=== PATIENT | male | born 1970 | race African-American/Black ===

== ENCOUNTER 2019-01-26 05:22 | Inpatient (IN) | payer OTHER ==
[~2019-01-26] VITALS: Ht 172.7 cm; Wt 72.5 kg
[2019-01-26] MEDS ORDERED: HYDR10TA31 PO (05:30)
[2019-01-26] MEDS ORDERED: CARV12.530 PO (05:30)
[2019-01-26 06:03] LABS: BASOPHILS % (AUTO) 0.3 % (0.0-2.0); EOSINOPHILS % (AUTO) 0.3 % (1.0-6.0); HEMATOCRIT 42.7 % (41-53); LYMPHOCYTES # (AUTO) 0.5 K/uL (1.0-4.8); LYMPHOCYTES % (AUTO) 4.3 % (22.0-44.0); MEAN CORPUSCULAR HEMOGLOBIN 30.7 pg (26.0-34.0); MEAN CORPUSCULAR HGB CONC 32.7 G/dL (31.0-37.0); MEAN CORPUSCULAR VOLUME 94 fL (80-100); MONOCYTES # (AUTO) 0.2 K/uL (0.1-1.0); MONOCYTES % (AUTO) 2.1 % (2.0-9.0); NEUTROPHILS # (AUTO) 10.9 K/uL (1.8-7.7); PLATELET COUNT (AUTO) 195 K/uL (150-450); RED BLOOD CELL COUNT(AUTO) 4.55 MIL/uL (4.50-5.90); RED CELL DISTRIBUTION WIDTH 14.8 % (11.5-14.5)
[2019-01-26 06:11] LABS: ANION GAP 15 mmol/L (8-16); CALCIUM, TOTAL 9.2 mg/dL (8.8-10.5); CARBON DIOXIDE 24 mmol/L (22-29); CHLORIDE 102 mmol/L (98-107); GLOMERULAR FILTR. RATE CALC > 60 mL/min (>60); GLUCOSE,RANDOM 156 mg/dL (70-110); POTASSIUM 3.8 mmol/L (3.5-5.1); SODIUM SERUM 141 mmol/L (136-145); UREA NITROGEN, BLOOD 20 mg/dL (7-18)
[2019-01-26] MEDS ORDERED: MORPHINE SULFATE 4 MG/ML SYRINGE IVP ONE ×2 (06:15→08:45)
[2019-01-26] MEDS ORDERED: ONDANSETRON HCL 4 MG/2 ML VIAL IVP ONE (06:15)
[2019-01-26] MEDS ORDERED: SODIUM CHLORIDE 0.9% 1,000 ML IV ONE (06:15)
[2019-01-26 06:17] LABS: ALANINE AMINOTRANSFERASE 28 U/L (12-78); ALBUMIN 4.5 g/dL (3.4-5.0); ALKALINE PHOSPHATASE 198 U/L (46-116); ASPARTATE AMINOTRANSFERASE 28 U/L (15-37); BILIRUBIN,TOTAL 5.5 mg/dL (0.1-1.0); TOTAL PROTEIN, SERUM 7.6 g/dL (6.4-8.2)
[2019-01-26] MEDS ORDERED: SODIUM CHLORIDE 0.9% 100 ML ONE (06:19)
[2019-01-26] MEDS ORDERED: IOVERSOL 350 MG/ML 100 ML VIAL ONE (06:19)
[2019-01-26 06:23] LABS: LIPASE 33 U/L (73-393)
[2019-01-26 06:42] LABS: B-TYPE NATRIURETIC PEPTIDE 861 pg/mL (0-100)
[2019-01-26 06:56] LABS: CREATINE KINASE, TOTAL ONLY 146 U/L (39-308)
[2019-01-26] MEDS ORDERED: GADOBUTROL 1 MMOL/ML 10 ML VIAL IVP ONE (08:44)
[2019-01-26] MEDS ORDERED: KETOROLAC TROMETHAMINE 30 MG/ML VIAL IVP ONE (08:45)
[2019-01-26] MEDS ORDERED: ACETAMINOPHEN 325 MG TABLET PO PRN ×2 (11:30→13:00)
[2019-01-26] MEDS ORDERED: 0.9% SODIUM CHLORIDE 10 ML SYRINGE IVP PRN (11:30)
[2019-01-26] MEDS ORDERED: PIPERACILLIN/TAZO 3.375 GM/D5W 50 ML IV ONE (11:30)
[2019-01-26] MEDS ORDERED: ONDANSETRON HCL 4 MG/2 ML VIAL IVP PRN (11:30)
[2019-01-26 12:57] VITALS: BP 118/75
[2019-01-26] MEDS ORDERED: ZOLPIDEM TARTRATE 5 MG TABLET PO PRN (13:00)
[2019-01-26] MEDS ORDERED: SODIUM CHLORIDE 0.9% 500 ML IV ONE (13:00)
[2019-01-26] MEDS ORDERED: BISACODYL 10 MG RECTAL RECTAL SUPPOSITORY PR PRN (13:00)
[2019-01-26] MEDS ORDERED: MAGNESIUM HYDROXIDE SUSPENSION 30 ML UDCUP PO PRN (13:00)
[2019-01-26 15:49] VITALS: BP 128/84
[2019-01-26] MEDS: HydrALAZINE HCL 10 MG TABLET PO SCH ×2 (15:57→20:08)
[2019-01-26] MEDS: HYDROCODONE/ACETAMINOPHEN 5-325 MG TABLET PO PRN ×2 (16:40→20:52)
[2019-01-26 19:54] VITALS: BP 109/73
[2019-01-26] MEDS: DOCUSATE SODIUM 100 MG CAPSULE PO SCH (20:06)
[2019-01-26 23:40] VITALS: BP 120/74
[2019-01-26] MEDS: MORPHINE SULFATE 2 MG/ML SYRINGE IVP PRN (23:53)
[2019-01-27 01:21] LABS: APPEARANCE,URINE CLEAR (CLEAR); GLUCOSE, URINE (UA) NEGATIVE (NEGATIVE); KETONES,URINE TRACE mg/dL (NEGATIVE); LEUKOCYTE ESTERASE ,URINE SMALL (NEGATIVE); NITRATE,URINE POSITIVE (NEGATIVE); OCCULT BLOOD,URINE NEGATIVE (NEGATIVE); PROTEIN,URINE SEE CONFIRM (NEGATIVE)
[2019-01-27 01:23] LABS: BILIRUBIN,URINE PRELIM. POSITIVE (NEGATIVE)
[2019-01-27 01:27] LABS: AMPHET/METH SCREEN,URINE NEGATIVE (NEGATIVE); BARBITURATE SCREEN, URINE NEGATIVE (NEGATIVE); BENZODIAZEPINES SCREEN,URINE NEGATIVE (NEGATIVE); CANNABINOID SCREEN,URINE NEGATIVE (NEGATIVE); COCAINE SCREEN,URINE NEGATIVE (NEGATIVE); METHADONE SCREEN, URINE NEGATIVE (NEGATIVE); OPIATE SCREEN,URINE POSITIVE (NEGATIVE); PHENCYCLIDINE SCREEN,URINE NEGATIVE (NEGATIVE)
[2019-01-27 01:29] LABS: BACTERIA,URINE Few /HPF (None Seen); RBC,URINE None Seen /HPF (0-2); SQUAMOUS EPITHELIAL CELL,UR Few /LPF (None Seen)
[2019-01-27 01:30] LABS: SULFOSALICYLIC ACID,URINE 1+ (Negative)
[2019-01-27] MEDS: MORPHINE SULFATE 2 MG/ML SYRINGE IVP PRN ×2 (03:49→08:04)
[2019-01-27 05:07] VITALS: BP 127/89
[2019-01-27] MEDS ORDERED: SODIUM CHLORIDE 0.9% 1,000 ML IV ONE (05:15)
[2019-01-27] MEDS: ONDANSETRON HCL 4 MG/2 ML VIAL IVP PRN ×2 (05:38→21:44)
[2019-01-27 06:41] LABS: BASOPHILS % (AUTO) 0.3 % (0.0-2.0); EOSINOPHILS % (AUTO) 0.1 % (1.0-6.0); HEMATOCRIT 44.3 % (41-53); HEMOGLOBIN 14.4 g/dL (13.5-17.5); LYMPHOCYTES # (AUTO) 1.3 K/uL (1.0-4.8); LYMPHOCYTES % (AUTO) 12.8 % (22.0-44.0); MEAN CORPUSCULAR HEMOGLOBIN 31.2 pg (26.0-34.0); MEAN CORPUSCULAR HGB CONC 32.6 G/dL (31.0-37.0); MEAN CORPUSCULAR VOLUME 96 fL (80-100); MONOCYTES # (AUTO) 0.8 K/uL (0.1-1.0); NEUTROPHILS # (AUTO) 8.3 K/uL (1.8-7.7); NEUTROPHILS % (AUTO) 78.8 % (40.0-70.0); PLATELET COUNT (AUTO) 141 K/uL (150-450); RED BLOOD CELL COUNT(AUTO) 4.64 MIL/uL (4.50-5.90); RED CELL DISTRIBUTION WIDTH 15.2 % (11.5-14.5)
[2019-01-27 07:19] LABS: ALANINE AMINOTRANSFERASE 46 U/L (12-78); ALKALINE PHOSPHATASE 179 U/L (46-116); ANION GAP 16 mmol/L (8-16); ASPARTATE AMINOTRANSFERASE 56 U/L (15-37); BILIRUBIN,TOTAL 11.9 mg/dL (0.1-1.0); CARBON DIOXIDE 22 mmol/L (22-29); CHLORIDE 101 mmol/L (98-107); CREATININE 1.37 mg/dL (0.60-1.30); GLOMERULAR FILTR. RATE CALC > 60 mL/min (>60); GLUCOSE,RANDOM 112 mg/dL (70-110); POTASSIUM 4.8 mmol/L (3.5-5.1); SODIUM SERUM 139 mmol/L (136-145); TOTAL PROTEIN, SERUM 7.4 g/dL (6.4-8.2); UREA NITROGEN, BLOOD 22 mg/dL (7-18)
[2019-01-27] MEDS: HydrALAZINE HCL 10 MG TABLET PO SCH (08:02)
[2019-01-27] MEDS: CARVEDILOL 12.5 MG TABLET PO SCH (08:04)
[2019-01-27] MEDS: PANTOPRAZOLE SODIUM 40 MG DR TABLET PO SCH (08:04)
[2019-01-27] MEDS: DOCUSATE SODIUM 100 MG CAPSULE PO SCH ×2 (08:06→20:36)
[2019-01-27 08:08] VITALS: BP 132/74
[2019-01-27] MEDS ORDERED: IOHEXOL 240 MG/ML 20 ML VIAL ONE (09:34)
[2019-01-27] MEDS ORDERED: BUPIVACAINE 0.25%/EPI 1:200,000/PF 10 ML VIAL ONE (09:34)
[2019-01-27] MEDS ORDERED: SODIUM CL IRRIG SOLN BAG 0 ML IRRIG ONE (09:35)
[2019-01-27 12:01] VITALS: BP 134/68
[2019-01-27 12:03] LABS: INR 1.6 (0.9-1.1); PROTHROMBIN TIME 16.8 SEC (9.4-11.6)
[2019-01-27] MEDS: PIPERACILLIN/TAZO 3.375 GM/D5W 50 ML IV SCH ×2 (14:19→20:20)
[2019-01-27 15:57] VITALS: BP_SYST 128; BP_SYST 153; BP_DIAS 70; BP_DIAS 91
[2019-01-27] MEDS: HydrALAZINE HCL 25 MG TABLET PO SCH (20:20)
[2019-01-27 20:49] VITALS: BP 135/80
[2019-01-28] VITALS (7 sets, daily range): BP systolic 114–148; BP diastolic 65–88
[2019-01-28] MEDS: PIPERACILLIN/TAZO 3.375 GM/D5W 50 ML IV SCH ×4 (01:26→18:58)
[2019-01-28 05:33] LABS: BASOPHILS % (AUTO) 0.4 % (0.0-2.0); EOSINOPHILS % (AUTO) 0 % (1.0-6.0); HEMATOCRIT 37.4 % (41-53); HEMOGLOBIN 12.6 g/dL (13.5-17.5); LYMPHOCYTES % (AUTO) 11.5 % (22.0-44.0); MEAN CORPUSCULAR HEMOGLOBIN 31.2 pg (26.0-34.0); MEAN CORPUSCULAR HGB CONC 33.7 G/dL (31.0-37.0); MEAN CORPUSCULAR VOLUME 93 fL (80-100); MONOCYTES % (AUTO) 12.4 % (2.0-9.0); NEUTROPHILS # (AUTO) 6.4 K/uL (1.8-7.7); NEUTROPHILS % (AUTO) 75.7 % (40.0-70.0); PLATELET COUNT (AUTO) 143 K/uL (150-450); RED BLOOD CELL COUNT(AUTO) 4.04 MIL/uL (4.50-5.90); RED CELL DISTRIBUTION WIDTH 14.9 % (11.5-14.5)
[2019-01-28 05:41] LABS: INR 1.6 (0.9-1.1); PROTHROMBIN TIME 16.1 SEC (9.4-11.6)
[2019-01-28 05:51] LABS: ALBUMIN 3.1 g/dL (3.4-5.0); BILIRUBIN,TOTAL 9.8 mg/dL (0.1-1.0); CALCIUM, TOTAL 8.4 mg/dL (8.8-10.5); CREATININE 1.59 mg/dL (0.60-1.30); POTASSIUM 3.7 mmol/L (3.5-5.1); TOTAL PROTEIN, SERUM 6.2 g/dL (6.4-8.2)
[2019-01-28] MEDS ORDERED: ISOSORBIDE MONONITRATE 30 MG ER TABLET PO SCH (09:00)
[2019-01-28] MEDS: DOCUSATE SODIUM 100 MG CAPSULE PO SCH ×2 (09:00→20:48)
[2019-01-28] MEDS: CARVEDILOL 12.5 MG TABLET PO SCH (09:21)
[2019-01-28] MEDS: PANTOPRAZOLE SODIUM 40 MG DR TABLET PO SCH (09:21)
[2019-01-28] MEDS: ISOSORBIDE MONONITRATE 30 MG ER TABLET PO SCH (09:22)
[2019-01-28 09:35] LABS: MAGNESIUM 1.5 mg/dL (1.80-2.40)
[2019-01-28] MEDS: HydrALAZINE HCL 25 MG TABLET PO SCH ×2 (12:37→20:48)
[2019-01-28] MEDS ORDERED: MAGNESIUM SULFATE 3 GM in DEXTROSE 5%-WATER 100 ML IV ONE (13:00)
[2019-01-28] MEDS: HYDROCODONE/ACETAMINOPHEN 5-325 MG TABLET PO PRN (20:48)
[2019-01-29] MEDS: PIPERACILLIN/TAZO 3.375 GM/D5W 50 ML IV SCH ×5 (00:08→23:55)
[2019-01-29 05:40] VITALS: BP 122/76
[2019-01-29] MEDS: ONDANSETRON HCL 4 MG/2 ML VIAL IVP PRN (06:02)
[2019-01-29 06:38] LABS: BASOPHILS % (AUTO) 0.5 % (0.0-2.0); EOSINOPHILS % (AUTO) 0.6 % (1.0-6.0); HEMATOCRIT 36.3 % (41-53); HEMOGLOBIN 12.3 g/dL (13.5-17.5); LYMPHOCYTES # (AUTO) 0.9 K/uL (1.0-4.8); LYMPHOCYTES % (AUTO) 14.4 % (22.0-44.0); MEAN CORPUSCULAR HEMOGLOBIN 31.1 pg (26.0-34.0); MEAN CORPUSCULAR VOLUME 91 fL (80-100); MONOCYTES # (AUTO) 0.7 K/uL (0.1-1.0); MONOCYTES % (AUTO) 11.7 % (2.0-9.0); NEUTROPHILS # (AUTO) 4.5 K/uL (1.8-7.7); NEUTROPHILS % (AUTO) 72.8 % (40.0-70.0); PLATELET COUNT (AUTO) 153 K/uL (150-450); RED BLOOD CELL COUNT(AUTO) 3.97 MIL/uL (4.50-5.90)
[2019-01-29 07:00] LABS: ALBUMIN 3.1 g/dL (3.4-5.0); BILIRUBIN,TOTAL 7.2 mg/dL (0.1-1.0); CALCIUM, TOTAL 8.2 mg/dL (8.8-10.5); CREATININE 1.56 mg/dL (0.60-1.30); MAGNESIUM 1.5 mg/dL (1.80-2.40); TOTAL PROTEIN, SERUM 6.1 g/dL (6.4-8.2)
[2019-01-29 08:03] VITALS: BP 128/91
[2019-01-29] MEDS: HydrALAZINE HCL 25 MG TABLET PO SCH ×2 (08:49→21:00)
[2019-01-29] MEDS: CARVEDILOL 12.5 MG TABLET PO SCH (08:49)
[2019-01-29] MEDS: ISOSORBIDE MONONITRATE 30 MG ER TABLET PO SCH (08:50)
[2019-01-29] MEDS: PANTOPRAZOLE SODIUM 40 MG DR TABLET PO SCH (08:52)
[2019-01-29] MEDS: DOCUSATE SODIUM 100 MG CAPSULE PO SCH ×2 (08:52→21:34)
[2019-01-29] MEDS ORDERED: POTASSIUM CHLORIDE 20 MEQ ER TABLET PO ONE (09:15)
[2019-01-29] MEDS ORDERED: MAGNESIUM SULFATE 2 GM/WATER 50 ML IV ONE (09:15)
[2019-01-29] MEDS: POTASSIUM CHL 10 MEQ/WATER 50 ML IV SCH ×2 (10:12→12:03)
[2019-01-29] MEDS ORDERED: SODIUM CHLORIDE 0.9% 100 ML ONE (10:16)
[2019-01-29 11:36] VITALS: BP 104/64
[2019-01-29 15:50] VITALS: BP 111/56
[2019-01-29 19:38] VITALS: BP 114/79
[2019-01-29 23:18] VITALS: BP 129/69
[2019-01-30 04:39] VITALS: BP 118/88
[2019-01-30] MEDS: PIPERACILLIN/TAZO 3.375 GM/D5W 50 ML IV SCH ×2 (06:03→12:45)
[2019-01-30 07:23] LABS: BASOPHILS % (AUTO) 0.7 % (0.0-2.0); EOSINOPHILS % (AUTO) 0.6 % (1.0-6.0); HEMATOCRIT 36.6 % (41-53); HEMOGLOBIN 12.3 g/dL (13.5-17.5); LYMPHOCYTES # (AUTO) 1.1 K/uL (1.0-4.8); LYMPHOCYTES % (AUTO) 18.4 % (22.0-44.0); MEAN CORPUSCULAR HGB CONC 33.7 G/dL (31.0-37.0); MEAN CORPUSCULAR VOLUME 92 fL (80-100); MONOCYTES # (AUTO) 0.8 K/uL (0.1-1.0); MONOCYTES % (AUTO) 12.8 % (2.0-9.0); NEUTROPHILS % (AUTO) 67.5 % (40.0-70.0); PLATELET COUNT (AUTO) 178 K/uL (150-450); RED BLOOD CELL COUNT(AUTO) 3.98 MIL/uL (4.50-5.90); RED CELL DISTRIBUTION WIDTH 14.7 % (11.5-14.5)
[2019-01-30 08:05] LABS: ALANINE AMINOTRANSFERASE 46 U/L (12-78); ALBUMIN 3.2 g/dL (3.4-5.0); ALKALINE PHOSPHATASE 138 U/L (46-116); ANION GAP 11 mmol/L (8-16); ASPARTATE AMINOTRANSFERASE 29 U/L (15-37); BILIRUBIN,TOTAL 5.3 mg/dL (0.1-1.0); CARBON DIOXIDE 28 mmol/L (22-29); CHLORIDE 98 mmol/L (98-107); CREATINE KINASE, TOTAL ONLY 165 U/L (39-308); CREATININE 1.36 mg/dL (0.60-1.30); GLOMERULAR FILTR. RATE CALC > 60 mL/min (>60); GLUCOSE,RANDOM 149 mg/dL (70-110); POTASSIUM 3.5 mmol/L (3.5-5.1); SODIUM SERUM 137 mmol/L (136-145); TOTAL PROTEIN, SERUM 6.7 g/dL (6.4-8.2); UREA NITROGEN, BLOOD 20 mg/dL (7-18)
[2019-01-30 08:07] VITALS: BP 125/81
[2019-01-30 08:08] VITALS: BP 130/90
[2019-01-30] MEDS: DOCUSATE SODIUM 100 MG CAPSULE PO SCH (09:00)
[2019-01-30] MEDS: PANTOPRAZOLE SODIUM 40 MG DR TABLET PO SCH (09:00)
[2019-01-30] MEDS: ISOSORBIDE MONONITRATE 30 MG ER TABLET PO SCH (09:14)
[2019-01-30] MEDS: HydrALAZINE HCL 25 MG TABLET PO SCH (09:16)
[2019-01-30] MEDS: CARVEDILOL 12.5 MG TABLET PO SCH (09:16)
[2019-01-30] MEDS ORDERED: MAGNESIUM SULFATE 2 GM/WATER 50 ML IV ONE (09:30)
[2019-01-30 11:11] VITALS: BP 141/80
== END 2019-01-30 13:40 | disposition left against medical advice (07) ==
LOC: EMS 05:24 → 4E 11:34 → 5S 13:21
PROVIDERS: ADMIT Internal Medicine; ATTEND Internal Medicine
DX: K80.00 Calculus of gallbladder with acute cholecystitis without obstruction (principal); N17.9 Acute kidney failure, unspecified; I42.0 Dilated cardiomyopathy; I13.0 Hypertensive heart and chronic kidney disease with heart failure and stage 1 through stage 4 chronic kidney disease, or unspecified chronic kidney disease; I50.9 Heart failure, unspecified; I08.1 Rheumatic disorders of both mitral and tricuspid valves; I25.10 Atherosclerotic heart disease of native coronary artery without angina pectoris; K74.60 Unspecified cirrhosis of liver; N18.9 Chronic kidney disease, unspecified; Z53.21 Procedure and treatment not carried out due to patient leaving prior to being seen by health care provider; E80.6 Other disorders of bilirubin metabolism; I48.2 Chronic atrial fibrillation; Z82.49 Family history of ischemic heart disease and other diseases of the circulatory system; Z90.49 Acquired absence of other specified parts of digestive tract
CPT/HCPCS: 74177; 74183; 80074; 83735; 87040; 87081; 93005; 93306; A9585; G0378; J1885; J2270; J2405; J2543; J3475; J3480; J3490; J7030; J7040; J7050; J7060; Q9966

== ENCOUNTER 2022-07-16 17:00 | Inpatient (IN) | payer OTHER ==
[~2022-07-16] VITALS: Ht 170.2 cm; Wt 73.9 kg
[~2022-07-16 17:00] MED LIST: CARV12.530 PO; HYDR10TA31 PO
[2022-07-16 17:15] VITALS: BP 101/60
[2022-07-16] MEDS ORDERED: DEXTROSE 50%-WATER 25 GM/50 ML SYRINGE IVP PRN (17:45)
[2022-07-16] MEDS ORDERED: ISOS30TA68 PO (17:57)
[2022-07-16] MEDS ORDERED: SACU1TAB PO (17:57)
[2022-07-16] MEDS ORDERED: BUME2TAB5 PO (17:57)
[2022-07-16 21:00] VITALS: BP 112/54
[2022-07-16] MEDS: DOCUSATE SODIUM 250 MG CAPSULE PO SCH (21:31)
[2022-07-16] MEDS: CARVEDILOL 12.5 MG TABLET PO SCH (21:33)
[2022-07-16] MEDS: SACUBITRIL/VALSARTAN 24-26 MG TABLET PO SCH (21:33)
[2022-07-16] MEDS: LACTULOSE 20 GM/30 ML SOLUTION UDCUP PO PRN (21:33)
[2022-07-16] MEDS: ATORVASTATIN CALCIUM 20 MG TABLET PO SCH (21:34)
[2022-07-16] MEDS: GABAPENTIN 100 MG CAPSULE PO SCH (21:35)
[2022-07-16] MEDS: SENNOSIDES 8.6 MG TABLET PO SCH (21:35)
[2022-07-16] MEDS: ETHYL ALCOHOL 62% ANTISEPTIC NASAL SANITIZER 0.6 ML AMPUL NASAL SCH (21:36)
[2022-07-16] MEDS: HEPARIN SODIUM,PORCINE 5,000 UNITS/ML VIAL SQ SCH (21:36)
[2022-07-16] MEDS: INSULIN LISPRO 100 UNITS/ML SQ PRN (21:38)
[2022-07-16 21:46] LABS: GLUCOMETER DEV NAME(LOC) 2WR.2B; GLUCOSE,POINT OF CARE 229 MG/DL (70-110)
[2022-07-16] MEDS ORDERED: INFLUENZA VIRUS VACCINE QVS 2022-23 (6MO+)/PF 60 MCG/0.5 ML SYRINGE IM. ONE (23:30)
[2022-07-16] MEDS ORDERED: PNEUMOCOCCAL VACCINE POLYVALENT 0.5 ML VIAL [PPSV23] IM. ONE (23:30)
[2022-07-17 07:04] LABS: BASOPHILS % (AUTO) 0.6 % (0.0-2.0); EOSINOPHILS % (AUTO) 0.3 % (1.0-6.0); HEMATOCRIT 47.9 % (41-53); HEMOGLOBIN 15.8 g/dL (13.5-17.5); LYMPHOCYTES # (AUTO) 1.5 K/uL (1.0-4.8); MEAN CORPUSCULAR HEMOGLOBIN 29.7 pg (26.0-34.0); MEAN CORPUSCULAR VOLUME 90 fL (80-100); MONOCYTES # (AUTO) 1.4 K/uL (0.1-1.0); MONOCYTES % (AUTO) 13.4 % (2.0-9.0); NEUTROPHILS # (AUTO) 7.7 K/uL (1.8-7.7); NEUTROPHILS % (AUTO) 71.7 % (40.0-70.0); PLATELET COUNT (AUTO) 349 K/uL (150-450); RED BLOOD CELL COUNT(AUTO) 5.32 MIL/uL (4.50-5.90); RED CELL DISTRIBUTION WIDTH 15.1 % (11.5-14.5)
[2022-07-17 07:06] LABS: GLUCOMETER DEV NAME(LOC) 2WR.1C; GLUCOSE,POINT OF CARE 230 MG/DL (70-110)
[2022-07-17 07:09] LABS: ALANINE AMINOTRANSFERASE 30 U/L (12-78); ALBUMIN 3.1 g/dL (3.4-5.0); ALKALINE PHOSPHATASE 160 U/L (46-116); ANION GAP 5 mmol/L (8-16); ASPARTATE AMINOTRANSFERASE 58 U/L (15-37); BILIRUBIN,TOTAL 2.5 mg/dL (0.1-1.0); CALCIUM, TOTAL 9.8 mg/dL (8.8-10.5); CARBON DIOXIDE 33 mmol/L (22-29); CHLORIDE 92 mmol/L (98-107); CREATININE 1.28 mg/dL (0.60-1.30); GLOMERULAR FILTR. RATE CALC > 60 mL/min (>60); GLUCOSE,RANDOM 231 mg/dL (70-110); POTASSIUM 4.4 mmol/L (3.5-5.1); SODIUM SERUM 130 mmol/L (136-145); TOTAL PROTEIN, SERUM 7.9 g/dL (6.4-8.2); UREA NITROGEN, BLOOD 29 mg/dL (7-18)
[2022-07-17 08:00] VITALS: BP 93/63
[2022-07-17 08:05] VITALS: BP 110/57
[2022-07-17] MEDS: MetFORMIN HCL 500 MG TABLET PO SCH ×2 (08:35→16:46)
[2022-07-17] MEDS: ASPIRIN 81 MG CHEWABLE TABLET PO SCH (08:36)
[2022-07-17] MEDS: ETHYL ALCOHOL 62% ANTISEPTIC NASAL SANITIZER 0.6 ML AMPUL NASAL SCH ×2 (08:36→20:47)
[2022-07-17] MEDS: BUMETANIDE 1 MG TABLET PO SCH (08:36)
[2022-07-17] MEDS: DOCUSATE SODIUM 250 MG CAPSULE PO SCH ×2 (08:37→20:55)
[2022-07-17] MEDS: CARVEDILOL 12.5 MG TABLET PO SCH (08:37)
[2022-07-17] MEDS: SACUBITRIL/VALSARTAN 24-26 MG TABLET PO SCH ×2 (08:37→20:48)
[2022-07-17] MEDS: ISOSORBIDE MONONITRATE 30 MG ER TABLET PO SCH (08:38)
[2022-07-17] MEDS: GABAPENTIN 100 MG CAPSULE PO SCH ×3 (08:38→20:53)
[2022-07-17] MEDS: HEPARIN SODIUM,PORCINE 5,000 UNITS/ML VIAL SQ SCH ×2 (08:39→20:54)
[2022-07-17] MEDS: ACETAMINOPHEN 325 MG TABLET PO PRN ×2 (08:40→14:37)
[2022-07-17] MEDS: INSULIN LISPRO 100 UNITS/ML SQ PRN ×4 (08:42→21:20)
[2022-07-17] MEDS: CEPHALEXIN MONOHYDRATE 500 MG CAPSULE PO SCH ×3 (12:32→20:49)
[2022-07-17 13:36] LABS: GLUCOMETER DEV NAME(LOC) 2WR.1C; GLUCOSE,POINT OF CARE 192 MG/DL (70-110)
[2022-07-17 17:11] LABS: GLUCOMETER DEV NAME(LOC) 2WR.2B; GLUCOSE,POINT OF CARE 168 MG/DL (70-110)
[2022-07-17] MEDS: HYDROCODONE/ACETAMINOPHEN 5-325 MG TABLET PO PRN (18:36)
[2022-07-17] MEDS: ATORVASTATIN CALCIUM 20 MG TABLET PO SCH (20:50)
[2022-07-17] MEDS: SENNOSIDES 8.6 MG TABLET PO SCH (20:55)
[2022-07-17] MEDS: CLOBETASOL 0.05% 60 GM OINTMENT TP SCH (20:55)
[2022-07-17] MEDS: CARVEDILOL 6.25 MG TABLET PO SCH (20:56)
[2022-07-17] MEDS: MELATONIN 3 MG TABLET PO PRN (21:19)
[2022-07-17 21:46] LABS: GLUCOMETER DEV NAME(LOC) 2WR.2B; GLUCOSE,POINT OF CARE 186 MG/DL (70-110)
[2022-07-17 21:48] VITALS: BP 104/57
[2022-07-18 06:21] LABS: BASOPHILS % (AUTO) 0.7 % (0.0-2.0); EOSINOPHILS % (AUTO) 0.8 % (1.0-6.0); LYMPHOCYTES # (AUTO) 1.6 K/uL (1.0-4.8); LYMPHOCYTES % (AUTO) 18.4 % (22.0-44.0); MEAN CORPUSCULAR HEMOGLOBIN 29.9 pg (26.0-34.0); MEAN CORPUSCULAR HGB CONC 33.4 G/dL (31.0-37.0); MEAN CORPUSCULAR VOLUME 90 fL (80-100); MONOCYTES % (AUTO) 11.9 % (2.0-9.0); NEUTROPHILS # (AUTO) 5.8 K/uL (1.8-7.7); NEUTROPHILS % (AUTO) 68.2 % (40.0-70.0); PLATELET COUNT (AUTO) 336 K/uL (150-450); RED BLOOD CELL COUNT(AUTO) 5.03 MIL/uL (4.50-5.90); RED CELL DISTRIBUTION WIDTH 15.5 % (11.5-14.5)
[2022-07-18 06:41] LABS: GLUCOMETER DEV NAME(LOC) 2WR.2B; GLUCOSE,POINT OF CARE 219 MG/DL (70-110)
[2022-07-18] MEDS: HYDROCODONE/ACETAMINOPHEN 5-325 MG TABLET PO PRN ×2 (07:47→16:50)
[2022-07-18] MEDS: MetFORMIN HCL 500 MG TABLET PO SCH ×2 (07:52→16:49)
[2022-07-18] MEDS: INSULIN LISPRO 100 UNITS/ML SQ PRN ×3 (08:04→17:42)
[2022-07-18 08:05] VITALS: BP 134/74
[2022-07-18] MEDS: ETHYL ALCOHOL 62% ANTISEPTIC NASAL SANITIZER 0.6 ML AMPUL NASAL SCH ×2 (08:29→20:51)
[2022-07-18] MEDS: BUMETANIDE 1 MG TABLET PO SCH (08:29)
[2022-07-18] MEDS: ASPIRIN 81 MG CHEWABLE TABLET PO SCH (08:29)
[2022-07-18] MEDS: GABAPENTIN 100 MG CAPSULE PO SCH ×3 (08:30→20:53)
[2022-07-18] MEDS: DOCUSATE SODIUM 250 MG CAPSULE PO SCH ×2 (08:30→20:46)
[2022-07-18] MEDS: CARVEDILOL 6.25 MG TABLET PO SCH ×2 (08:30→20:54)
[2022-07-18] MEDS: ISOSORBIDE MONONITRATE 30 MG ER TABLET PO SCH (08:31)
[2022-07-18] MEDS: SACUBITRIL/VALSARTAN 24-26 MG TABLET PO SCH ×2 (08:31→20:52)
[2022-07-18] MEDS: CEPHALEXIN MONOHYDRATE 500 MG CAPSULE PO SCH ×4 (08:33→20:53)
[2022-07-18] MEDS: CLOBETASOL 0.05% 60 GM OINTMENT TP SCH ×2 (08:33→20:52)
[2022-07-18] MEDS: HEPARIN SODIUM,PORCINE 5,000 UNITS/ML VIAL SQ SCH ×2 (08:33→20:52)
[2022-07-18 12:26] LABS: GLUCOMETER DEV NAME(LOC) 2WR.1C; GLUCOSE,POINT OF CARE 222 MG/DL (70-110)
[2022-07-18] MEDS: LACTULOSE 20 GM/30 ML SOLUTION UDCUP PO PRN (16:50)
[2022-07-18 17:31] LABS: GLUCOMETER DEV NAME(LOC) 2WR.1C; GLUCOSE,POINT OF CARE 146 MG/DL (70-110)
[2022-07-18 20:00] VITALS: BP 116/52
[2022-07-18] MEDS: ATORVASTATIN CALCIUM 40 MG TABLET PO SCH (20:53)
[2022-07-18] MEDS: MELATONIN 3 MG TABLET PO PRN (20:54)
[2022-07-18] MEDS: SENNOSIDES 8.6 MG TABLET PO SCH (20:54)
[2022-07-18 21:11] LABS: GLUCOMETER DEV NAME(LOC) 2WR.1C; GLUCOSE,POINT OF CARE 137 MG/DL (70-110)
[2022-07-19 07:21] LABS: GLUCOMETER DEV NAME(LOC) 2WR.1C; GLUCOSE,POINT OF CARE 147 MG/DL (70-110)
[2022-07-19 08:00] VITALS: BP 116/57
[2022-07-19] MEDS: MetFORMIN HCL 500 MG TABLET PO SCH ×2 (08:30→16:35)
[2022-07-19] MEDS: BUMETANIDE 1 MG TABLET PO SCH (08:31)
[2022-07-19] MEDS: ASPIRIN 81 MG CHEWABLE TABLET PO SCH (08:31)
[2022-07-19] MEDS: DOCUSATE SODIUM 250 MG CAPSULE PO SCH ×3 (08:31→21:00)
[2022-07-19] MEDS: ETHYL ALCOHOL 62% ANTISEPTIC NASAL SANITIZER 0.6 ML AMPUL NASAL SCH ×2 (08:31→21:02)
[2022-07-19] MEDS: HEPARIN SODIUM,PORCINE 5,000 UNITS/ML VIAL SQ SCH ×2 (08:32→21:02)
[2022-07-19] MEDS: ISOSORBIDE MONONITRATE 30 MG ER TABLET PO SCH (08:32)
[2022-07-19] MEDS: CARVEDILOL 6.25 MG TABLET PO SCH ×2 (08:32→21:00)
[2022-07-19] MEDS: SACUBITRIL/VALSARTAN 24-26 MG TABLET PO SCH ×2 (08:32→21:04)
[2022-07-19] MEDS: CEPHALEXIN MONOHYDRATE 500 MG CAPSULE PO SCH ×4 (08:32→21:04)
[2022-07-19] MEDS: GABAPENTIN 100 MG CAPSULE PO SCH ×3 (08:32→21:02)
[2022-07-19] MEDS: CLOBETASOL 0.05% 60 GM OINTMENT TP SCH ×2 (08:33→21:05)
[2022-07-19] MEDS: INSULIN LISPRO 100 UNITS/ML SQ PRN ×4 (08:34→21:16)
[2022-07-19 12:31] LABS: GLUCOMETER DEV NAME(LOC) 2WR.1C; GLUCOSE,POINT OF CARE 197 MG/DL (70-110)
[2022-07-19 16:56] LABS: GLUCOMETER DEV NAME(LOC) 2WR.2B; GLUCOSE,POINT OF CARE 159 MG/DL (70-110)
[2022-07-19] MEDS: HYDROCODONE/ACETAMINOPHEN 5-325 MG TABLET PO PRN (17:51)
[2022-07-19 20:40] VITALS: BP 93/60
[2022-07-19] MEDS: SENNOSIDES 8.6 MG TABLET PO SCH (21:00)
[2022-07-19] MEDS: ATORVASTATIN CALCIUM 40 MG TABLET PO SCH (21:02)
[2022-07-20] MEDS: HYDROCODONE/ACETAMINOPHEN 5-325 MG TABLET PO PRN ×3 (02:28→20:44)
[2022-07-20 04:21] LABS: GLUCOMETER DEV NAME(LOC) 2WR.2B; GLUCOSE,POINT OF CARE 156 MG/DL (70-110)
[2022-07-20 07:01] LABS: GLUCOMETER DEV NAME(LOC) 2WR.1C; GLUCOSE,POINT OF CARE 151 MG/DL (70-110)
[2022-07-20 08:10] VITALS: BP 97/61
[2022-07-20] MEDS: INSULIN LISPRO 100 UNITS/ML SQ PRN ×2 (08:10→12:04)
[2022-07-20] MEDS: DOCUSATE SODIUM 250 MG CAPSULE PO SCH ×2 (08:11→20:45)
[2022-07-20] MEDS: GABAPENTIN 100 MG CAPSULE PO SCH ×3 (08:11→20:44)
[2022-07-20] MEDS: ETHYL ALCOHOL 62% ANTISEPTIC NASAL SANITIZER 0.6 ML AMPUL NASAL SCH ×2 (08:11→20:43)
[2022-07-20] MEDS: HEPARIN SODIUM,PORCINE 5,000 UNITS/ML VIAL SQ SCH (08:11)
[2022-07-20] MEDS: BUMETANIDE 1 MG TABLET PO SCH (08:12)
[2022-07-20] MEDS: ASPIRIN 81 MG CHEWABLE TABLET PO SCH (08:12)
[2022-07-20] MEDS: CEPHALEXIN MONOHYDRATE 500 MG CAPSULE PO SCH ×4 (08:13→20:43)
[2022-07-20] MEDS: MetFORMIN HCL 500 MG TABLET PO SCH ×2 (08:13→16:25)
[2022-07-20] MEDS: CARVEDILOL 6.25 MG TABLET PO SCH ×2 (08:13→20:44)
[2022-07-20] MEDS: ISOSORBIDE MONONITRATE 30 MG ER TABLET PO SCH (08:14)
[2022-07-20] MEDS: SACUBITRIL/VALSARTAN 24-26 MG TABLET PO SCH ×2 (08:14→20:43)
[2022-07-20] MEDS: CLOBETASOL 0.05% 60 GM OINTMENT TP SCH ×2 (08:15→20:43)
[2022-07-20] MEDS: FLUoxetine HCL 10 MG CAPSULE PO SCH (10:51)
[2022-07-20 13:06] LABS: GLUCOMETER DEV NAME(LOC) 2WR.1C; GLUCOSE,POINT OF CARE 163 MG/DL (70-110)
[2022-07-20 17:16] LABS: GLUCOMETER DEV NAME(LOC) 2WR.1C; GLUCOSE,POINT OF CARE 119 MG/DL (70-110)
[2022-07-20 19:42] VITALS: BP 103/67
[2022-07-20] MEDS: ATORVASTATIN CALCIUM 40 MG TABLET PO SCH (20:43)
[2022-07-20] MEDS: APIXABAN 5 MG TABLET PO SCH (20:43)
[2022-07-20 20:44] VITALS: BP 111/52
[2022-07-20] MEDS: SENNOSIDES 8.6 MG TABLET PO SCH (20:44)
[2022-07-20 22:11] LABS: GLUCOMETER DEV NAME(LOC) 2WR.1C; GLUCOSE,POINT OF CARE 132 MG/DL (70-110)
[2022-07-21 06:46] LABS: GLUCOMETER DEV NAME(LOC) 2WR.1C; GLUCOSE,POINT OF CARE 138 MG/DL (70-110)
[2022-07-21 07:48] VITALS: BP 117/65
[2022-07-21] MEDS: GABAPENTIN 100 MG CAPSULE PO SCH ×3 (07:51→20:31)
[2022-07-21] MEDS: DOCUSATE SODIUM 250 MG CAPSULE PO SCH ×2 (07:51→20:28)
[2022-07-21] MEDS: BUMETANIDE 1 MG TABLET PO SCH (07:51)
[2022-07-21] MEDS: APIXABAN 5 MG TABLET PO SCH ×2 (07:51→20:31)
[2022-07-21] MEDS: CARVEDILOL 6.25 MG TABLET PO SCH ×2 (07:51→20:31)
[2022-07-21] MEDS: ASPIRIN 81 MG CHEWABLE TABLET PO SCH (07:51)
[2022-07-21] MEDS: MetFORMIN HCL 500 MG TABLET PO SCH ×2 (07:51→16:47)
[2022-07-21] MEDS: SACUBITRIL/VALSARTAN 24-26 MG TABLET PO SCH ×2 (07:52→20:31)
[2022-07-21] MEDS: CLOBETASOL 0.05% 60 GM OINTMENT TP SCH ×2 (07:52→20:32)
[2022-07-21] MEDS: CEPHALEXIN MONOHYDRATE 500 MG CAPSULE PO SCH ×4 (07:52→20:31)
[2022-07-21] MEDS: ISOSORBIDE MONONITRATE 30 MG ER TABLET PO SCH (07:52)
[2022-07-21] MEDS: FLUoxetine HCL 10 MG CAPSULE PO SCH (07:52)
[2022-07-21] MEDS: ETHYL ALCOHOL 62% ANTISEPTIC NASAL SANITIZER 0.6 ML AMPUL NASAL SCH ×2 (07:58→20:30)
[2022-07-21] MEDS: INSULIN LISPRO 100 UNITS/ML SQ PRN ×2 (12:19→17:05)
[2022-07-21 13:12] LABS: GLUCOMETER DEV NAME(LOC) 2WR.1C; GLUCOSE,POINT OF CARE 168 MG/DL (70-110)
[2022-07-21] MEDS: HYDROCODONE/ACETAMINOPHEN 5-325 MG TABLET PO PRN (16:58)
[2022-07-21 17:26] LABS: GLUCOMETER DEV NAME(LOC) 2WR.2B; GLUCOSE,POINT OF CARE 153 MG/DL (70-110)
[2022-07-21 20:00] VITALS: BP 132/62
[2022-07-21 20:26] LABS: GLUCOMETER DEV NAME(LOC) 2WR.2B; GLUCOSE,POINT OF CARE 136 MG/DL (70-110)
[2022-07-21] MEDS: SENNOSIDES 8.6 MG TABLET PO SCH (20:28)
[2022-07-21] MEDS: ATORVASTATIN CALCIUM 40 MG TABLET PO SCH (20:31)
[2022-07-22 06:46] LABS: GLUCOMETER DEV NAME(LOC) 2WR.1C; GLUCOSE,POINT OF CARE 147 MG/DL (70-110)
[2022-07-22 08:00] VITALS: BP 117/67
[2022-07-22] MEDS: MetFORMIN HCL 500 MG TABLET PO SCH ×2 (08:00→16:34)
[2022-07-22] MEDS: ETHYL ALCOHOL 62% ANTISEPTIC NASAL SANITIZER 0.6 ML AMPUL NASAL SCH ×2 (08:00→20:27)
[2022-07-22] MEDS: BUMETANIDE 1 MG TABLET PO SCH (08:01)
[2022-07-22] MEDS: DOCUSATE SODIUM 250 MG CAPSULE PO SCH ×2 (08:01→20:36)
[2022-07-22] MEDS: APIXABAN 5 MG TABLET PO SCH ×2 (08:02→20:27)
[2022-07-22] MEDS: SACUBITRIL/VALSARTAN 24-26 MG TABLET PO SCH ×2 (08:02→20:27)
[2022-07-22] MEDS: CARVEDILOL 6.25 MG TABLET PO SCH ×2 (08:02→20:27)
[2022-07-22] MEDS: CEPHALEXIN MONOHYDRATE 500 MG CAPSULE PO SCH ×4 (08:03→20:27)
[2022-07-22] MEDS: FLUoxetine HCL 10 MG CAPSULE PO SCH (08:03)
[2022-07-22] MEDS: ISOSORBIDE MONONITRATE 30 MG ER TABLET PO SCH (08:03)
[2022-07-22] MEDS: GABAPENTIN 100 MG CAPSULE PO SCH (08:03)
[2022-07-22] MEDS: CLOBETASOL 0.05% 60 GM OINTMENT TP SCH ×2 (08:03→20:30)
[2022-07-22] MEDS: INSULIN LISPRO 100 UNITS/ML SQ PRN ×2 (08:06→12:30)
[2022-07-22] MEDS: HYDROCODONE/ACETAMINOPHEN 5-325 MG TABLET PO PRN ×2 (10:12→16:38)
[2022-07-22 10:59] LABS: BASOPHILS % (AUTO) 0.6 % (0.0-2.0); EOSINOPHILS % (AUTO) 0.2 % (1.0-6.0); HEMATOCRIT 46.9 % (41-53); HEMOGLOBIN 15.8 g/dL (13.5-17.5); LYMPHOCYTES # (AUTO) 1.3 K/uL (1.0-4.8); MEAN CORPUSCULAR HEMOGLOBIN 30.3 pg (26.0-34.0); MEAN CORPUSCULAR HGB CONC 33.6 G/dL (31.0-37.0); MEAN CORPUSCULAR VOLUME 90 fL (80-100); MONOCYTES # (AUTO) 1.1 K/uL (0.1-1.0); MONOCYTES % (AUTO) 10.4 % (2.0-9.0); NEUTROPHILS # (AUTO) 8.2 K/uL (1.8-7.7); NEUTROPHILS % (AUTO) 76.8 % (40.0-70.0); PLATELET COUNT (AUTO) 509 K/uL (150-450); RED BLOOD CELL COUNT(AUTO) 5.21 MIL/uL (4.50-5.90); RED CELL DISTRIBUTION WIDTH 14.9 % (11.5-14.5)
[2022-07-22 11:40] LABS: ANION GAP 6 mmol/L (8-16); CALCIUM, TOTAL 9.7 mg/dL (8.8-10.5); CARBON DIOXIDE 29 mmol/L (22-29); CHLORIDE 96 mmol/L (98-107); CREATININE 1.16 mg/dL (0.60-1.30); GLOMERULAR FILTR. RATE CALC > 60 mL/min (>60); GLUCOSE,RANDOM 131 mg/dL (70-110); SODIUM SERUM 131 mmol/L (136-145); UREA NITROGEN, BLOOD 25 mg/dL (7-18)
[2022-07-22 11:44] LABS: C-REACTIVE PROTEIN QUANT 6.23 mg/dL (0.00-0.30)
[2022-07-22 11:53] LABS: URIC ACID 7.9 mg/dL (2.6-7.2)
[2022-07-22] MEDS: GABAPENTIN 300 MG CAPSULE PO SCH ×2 (16:34→20:27)
[2022-07-22 17:51] LABS: GLUCOMETER DEV NAME(LOC) 2WR.2B; GLUCOSE,POINT OF CARE 140 MG/DL (70-110)
[2022-07-22 20:00] VITALS: BP 115/66
[2022-07-22 20:06] LABS: GLUCOMETER DEV NAME(LOC) 2WR.1C; GLUCOSE,POINT OF CARE 150 MG/DL (70-110)
[2022-07-22] MEDS: ATORVASTATIN CALCIUM 40 MG TABLET PO SCH (20:27)
[2022-07-22] MEDS: MELATONIN 3 MG TABLET PO PRN (20:28)
[2022-07-22] MEDS: SENNOSIDES 8.6 MG TABLET PO SCH (20:36)
[2022-07-22 20:56] LABS: GLUCOMETER DEV NAME(LOC) 2WR.2B; GLUCOSE,POINT OF CARE 119 MG/DL (70-110)
[2022-07-23] MEDS: HYDROCODONE/ACETAMINOPHEN 5-325 MG TABLET PO PRN ×4 (05:36→20:19)
[2022-07-23 07:00] LABS: GLUCOMETER DEV NAME(LOC) 2WR.2B; GLUCOSE,POINT OF CARE 144 MG/DL (70-110)
[2022-07-23 07:52] VITALS: BP 133/61
[2022-07-23] MEDS: INSULIN LISPRO 100 UNITS/ML SQ PRN ×2 (08:11→17:37)
[2022-07-23] MEDS: ETHYL ALCOHOL 62% ANTISEPTIC NASAL SANITIZER 0.6 ML AMPUL NASAL SCH ×2 (08:12→20:16)
[2022-07-23] MEDS: MetFORMIN HCL 500 MG TABLET PO SCH ×2 (08:12→16:41)
[2022-07-23] MEDS: DOCUSATE SODIUM 250 MG CAPSULE PO SCH ×2 (08:12→20:17)
[2022-07-23] MEDS: BUMETANIDE 1 MG TABLET PO SCH (08:12)
[2022-07-23] MEDS: CARVEDILOL 6.25 MG TABLET PO SCH ×2 (08:14→20:19)
[2022-07-23] MEDS: APIXABAN 5 MG TABLET PO SCH ×2 (08:14→20:19)
[2022-07-23] MEDS: GABAPENTIN 300 MG CAPSULE PO SCH ×3 (08:14→20:18)
[2022-07-23] MEDS: FLUoxetine HCL 10 MG CAPSULE PO SCH (08:15)
[2022-07-23] MEDS: ALLOPURINOL 100 MG TABLET PO SCH (08:15)
[2022-07-23] MEDS: CEPHALEXIN MONOHYDRATE 500 MG CAPSULE PO SCH ×4 (08:16→20:17)
[2022-07-23] MEDS: ISOSORBIDE MONONITRATE 30 MG ER TABLET PO SCH (08:16)
[2022-07-23] MEDS: SACUBITRIL/VALSARTAN 24-26 MG TABLET PO SCH ×2 (08:17→20:18)
[2022-07-23] MEDS: CLOBETASOL 0.05% 60 GM OINTMENT TP SCH ×2 (08:17→20:19)
[2022-07-23] MEDS: ACETAMINOPHEN 325 MG TABLET PO PRN (08:20)
[2022-07-23] MEDS: COLCHICINE 0.6 MG TABLET PO PRN ×3 (11:43→20:43)
[2022-07-23 13:31] LABS: GLUCOMETER DEV NAME(LOC) 2WR.1C; GLUCOSE,POINT OF CARE 135 MG/DL (70-110)
[2022-07-23 18:07] LABS: GLUCOMETER DEV NAME(LOC) 2WR.1C; GLUCOSE,POINT OF CARE 155 MG/DL (70-110)
[2022-07-23] MEDS: SENNOSIDES 8.6 MG TABLET PO SCH (20:17)
[2022-07-23] MEDS: ATORVASTATIN CALCIUM 40 MG TABLET PO SCH (20:18)
[2022-07-23] MEDS: MELATONIN 3 MG TABLET PO PRN (20:18)
[2022-07-23 20:44] VITALS: BP 114/74
[2022-07-23 20:51] LABS: GLUCOMETER DEV NAME(LOC) 2WR.1C; GLUCOSE,POINT OF CARE 90 MG/DL (70-110)
[2022-07-24 07:05] LABS: ANION GAP 7 mmol/L (8-16); CALCIUM, TOTAL 9.2 mg/dL (8.8-10.5); CARBON DIOXIDE 29 mmol/L (22-29); CHLORIDE 94 mmol/L (98-107); CREATININE 1.12 mg/dL (0.60-1.30); GLOMERULAR FILTR. RATE CALC > 60 mL/min (>60); GLUCOSE,RANDOM 144 mg/dL (70-110); POTASSIUM 4.1 mmol/L (3.5-5.1); SODIUM SERUM 130 mmol/L (136-145); UREA NITROGEN, BLOOD 26 mg/dL (7-18)
[2022-07-24 07:53] VITALS: BP 116/59
[2022-07-24] MEDS: CARVEDILOL 6.25 MG TABLET PO SCH ×2 (07:55→20:43)
[2022-07-24] MEDS: MetFORMIN HCL 500 MG TABLET PO SCH ×2 (07:55→16:05)
[2022-07-24 07:56] LABS: GLUCOMETER DEV NAME(LOC) 2WR.1C; GLUCOSE,POINT OF CARE 140 MG/DL (70-110)
[2022-07-24] MEDS: CEPHALEXIN MONOHYDRATE 500 MG CAPSULE PO SCH ×4 (07:56→20:43)
[2022-07-24] MEDS: DOCUSATE SODIUM 250 MG CAPSULE PO SCH ×2 (07:56→20:38)
[2022-07-24] MEDS: ETHYL ALCOHOL 62% ANTISEPTIC NASAL SANITIZER 0.6 ML AMPUL NASAL SCH ×2 (07:56→20:38)
[2022-07-24] MEDS: BUMETANIDE 1 MG TABLET PO SCH (07:56)
[2022-07-24] MEDS: ALLOPURINOL 100 MG TABLET PO SCH (07:56)
[2022-07-24] MEDS: GABAPENTIN 300 MG CAPSULE PO SCH ×3 (07:56→20:43)
[2022-07-24] MEDS: ISOSORBIDE MONONITRATE 30 MG ER TABLET PO SCH (07:57)
[2022-07-24] MEDS: FLUoxetine HCL 10 MG CAPSULE PO SCH (07:57)
[2022-07-24] MEDS: SACUBITRIL/VALSARTAN 24-26 MG TABLET PO SCH ×2 (07:57→20:43)
[2022-07-24] MEDS: APIXABAN 5 MG TABLET PO SCH ×2 (07:57→20:43)
[2022-07-24] MEDS: CLOBETASOL 0.05% 60 GM OINTMENT TP SCH ×2 (07:58→20:44)
[2022-07-24] MEDS: HYDROCODONE/ACETAMINOPHEN 5-325 MG TABLET PO PRN ×2 (08:24→18:41)
[2022-07-24 12:16] LABS: GLUCOMETER DEV NAME(LOC) 2WR.2B; GLUCOSE,POINT OF CARE 162 MG/DL (70-110)
[2022-07-24] MEDS: INSULIN LISPRO 100 UNITS/ML SQ PRN (12:18)
[2022-07-24] MEDS: COLCHICINE 0.6 MG TABLET PO PRN (16:06)
[2022-07-24 17:51] LABS: GLUCOMETER DEV NAME(LOC) 2WR.2B; GLUCOSE,POINT OF CARE 127 MG/DL (70-110)
[2022-07-24 20:11] VITALS: BP 115/71
[2022-07-24] MEDS: ATORVASTATIN CALCIUM 40 MG TABLET PO SCH (20:43)
[2022-07-24] MEDS: SENNOSIDES 8.6 MG TABLET PO SCH (20:43)
[2022-07-24] MEDS: MELATONIN 3 MG TABLET PO PRN (20:44)
[2022-07-24 21:45] LABS: GLUCOMETER DEV NAME(LOC) 2WR.2B; GLUCOSE,POINT OF CARE 126 MG/DL (70-110)
[2022-07-25 07:46] LABS: GLUCOMETER DEV NAME(LOC) 2WR.1C; GLUCOSE,POINT OF CARE 148 MG/DL (70-110)
[2022-07-25 08:02] VITALS: BP 112/68
[2022-07-25] MEDS: ALLOPURINOL 100 MG TABLET PO SCH (08:21)
[2022-07-25] MEDS: CARVEDILOL 6.25 MG TABLET PO SCH ×2 (08:21→21:24)
[2022-07-25] MEDS: MetFORMIN HCL 500 MG TABLET PO SCH ×2 (08:21→17:17)
[2022-07-25] MEDS: APIXABAN 5 MG TABLET PO SCH ×2 (08:21→21:24)
[2022-07-25] MEDS: BUMETANIDE 1 MG TABLET PO SCH (08:22)
[2022-07-25] MEDS: GABAPENTIN 300 MG CAPSULE PO SCH ×3 (08:22→21:25)
[2022-07-25] MEDS: INSULIN LISPRO 100 UNITS/ML SQ PRN ×2 (08:23→17:32)
[2022-07-25] MEDS: ETHYL ALCOHOL 62% ANTISEPTIC NASAL SANITIZER 0.6 ML AMPUL NASAL SCH ×2 (08:23→21:24)
[2022-07-25] MEDS: ISOSORBIDE MONONITRATE 30 MG ER TABLET PO SCH (08:24)
[2022-07-25] MEDS: SACUBITRIL/VALSARTAN 24-26 MG TABLET PO SCH ×2 (08:24→21:24)
[2022-07-25] MEDS: CEPHALEXIN MONOHYDRATE 500 MG CAPSULE PO SCH ×4 (08:25→21:24)
[2022-07-25] MEDS: CLOBETASOL 0.05% 60 GM OINTMENT TP SCH ×2 (08:25→21:25)
[2022-07-25] MEDS: FLUoxetine HCL 10 MG CAPSULE PO SCH (08:25)
[2022-07-25] MEDS: DOCUSATE SODIUM 250 MG CAPSULE PO SCH ×2 (08:34→21:24)
[2022-07-25] MEDS: HYDROCODONE/ACETAMINOPHEN 5-325 MG TABLET PO PRN ×3 (09:28→21:31)
[2022-07-25 12:41] LABS: GLUCOMETER DEV NAME(LOC) 2WR.1C; GLUCOSE,POINT OF CARE 128 MG/DL (70-110)
[2022-07-25 17:41] LABS: GLUCOMETER DEV NAME(LOC) 2WR.1C; GLUCOSE,POINT OF CARE 149 MG/DL (70-110)
[2022-07-25 21:11] VITALS: BP 100/71
[2022-07-25] MEDS: ATORVASTATIN CALCIUM 40 MG TABLET PO SCH (21:25)
[2022-07-25] MEDS: SENNOSIDES 8.6 MG TABLET PO SCH (21:25)
[2022-07-25 23:25] LABS: GLUCOMETER DEV NAME(LOC) 2WR.2B; GLUCOSE,POINT OF CARE 101 MG/DL (70-110)
[2022-07-26 06:51] LABS: GLUCOMETER DEV NAME(LOC) 2WR.1C; GLUCOSE,POINT OF CARE 124 MG/DL (70-110)
[2022-07-26 08:40] VITALS: BP 113/67
[2022-07-26] MEDS: MetFORMIN HCL 500 MG TABLET PO SCH ×2 (08:42→17:15)
[2022-07-26] MEDS: ETHYL ALCOHOL 62% ANTISEPTIC NASAL SANITIZER 0.6 ML AMPUL NASAL SCH ×2 (08:42→20:41)
[2022-07-26] MEDS: BUMETANIDE 1 MG TABLET PO SCH (08:43)
[2022-07-26] MEDS: DOCUSATE SODIUM 250 MG CAPSULE PO SCH ×2 (08:43→20:41)
[2022-07-26] MEDS: ISOSORBIDE MONONITRATE 30 MG ER TABLET PO SCH (08:43)
[2022-07-26] MEDS: CARVEDILOL 6.25 MG TABLET PO SCH ×2 (08:43→20:42)
[2022-07-26] MEDS: SACUBITRIL/VALSARTAN 24-26 MG TABLET PO SCH ×2 (08:43→20:42)
[2022-07-26] MEDS: APIXABAN 5 MG TABLET PO SCH ×2 (08:43→20:42)
[2022-07-26] MEDS: CEPHALEXIN MONOHYDRATE 500 MG CAPSULE PO SCH (08:44)
[2022-07-26] MEDS: FLUoxetine HCL 10 MG CAPSULE PO SCH (08:44)
[2022-07-26] MEDS: GABAPENTIN 300 MG CAPSULE PO SCH ×3 (08:44→20:42)
[2022-07-26] MEDS: CLOBETASOL 0.05% 60 GM OINTMENT TP SCH ×2 (08:44→20:43)
[2022-07-26] MEDS: HYDROCODONE/ACETAMINOPHEN 5-325 MG TABLET PO PRN ×2 (08:44→19:00)
[2022-07-26] MEDS: ALLOPURINOL 100 MG TABLET PO SCH (08:44)
[2022-07-26] MEDS: INSULIN LISPRO 100 UNITS/ML SQ PRN (12:13)
[2022-07-26 12:41] LABS: GLUCOMETER DEV NAME(LOC) 2WR.1C; GLUCOSE,POINT OF CARE 145 MG/DL (70-110)
[2022-07-26 20:40] VITALS: BP 127/72
[2022-07-26] MEDS: SENNOSIDES 8.6 MG TABLET PO SCH (20:41)
[2022-07-26] MEDS: ATORVASTATIN CALCIUM 40 MG TABLET PO SCH (20:42)
[2022-07-26] MEDS: COLCHICINE 0.6 MG TABLET PO PRN (20:43)
[2022-07-26 20:46] LABS: GLUCOMETER DEV NAME(LOC) 2WR.1C; GLUCOSE,POINT OF CARE 123 MG/DL (70-110)
[2022-07-26 22:36] LABS: GLUCOMETER DEV NAME(LOC) 2WR.2B; GLUCOSE,POINT OF CARE 114 MG/DL (70-110)
[2022-07-27 06:56] LABS: GLUCOMETER DEV NAME(LOC) 2WR.1C; GLUCOSE,POINT OF CARE 138 MG/DL (70-110)
[2022-07-27] MEDS: ETHYL ALCOHOL 62% ANTISEPTIC NASAL SANITIZER 0.6 ML AMPUL NASAL SCH ×2 (07:29→20:13)
[2022-07-27] MEDS: SACUBITRIL/VALSARTAN 24-26 MG TABLET PO SCH ×2 (07:30→20:14)
[2022-07-27] MEDS: CLOBETASOL 0.05% 60 GM OINTMENT TP SCH ×2 (07:31→20:15)
[2022-07-27] MEDS: FLUoxetine HCL 10 MG CAPSULE PO SCH (07:31)
[2022-07-27] MEDS: DOCUSATE SODIUM 250 MG CAPSULE PO SCH ×2 (07:32→21:00)
[2022-07-27] MEDS: GABAPENTIN 300 MG CAPSULE PO SCH ×3 (07:32→20:14)
[2022-07-27] MEDS: ISOSORBIDE MONONITRATE 30 MG ER TABLET PO SCH (07:32)
[2022-07-27] MEDS: BUMETANIDE 1 MG TABLET PO SCH (07:33)
[2022-07-27] MEDS: APIXABAN 5 MG TABLET PO SCH ×2 (07:33→20:14)
[2022-07-27] MEDS: CARVEDILOL 6.25 MG TABLET PO SCH ×2 (07:33→20:14)
[2022-07-27] MEDS: MetFORMIN HCL 500 MG TABLET PO SCH ×2 (07:33→15:50)
[2022-07-27] MEDS: ALLOPURINOL 100 MG TABLET PO SCH (07:42)
[2022-07-27 08:05] VITALS: BP 130/76
[2022-07-27] MEDS: HYDROCODONE/ACETAMINOPHEN 5-325 MG TABLET PO PRN (09:29)
[2022-07-27 11:46] LABS: GLUCOMETER DEV NAME(LOC) 2WR.2B; GLUCOSE,POINT OF CARE 122 MG/DL (70-110)
[2022-07-27 17:11] LABS: GLUCOMETER DEV NAME(LOC) 2WR.2B; GLUCOSE,POINT OF CARE 97 MG/DL (70-110)
[2022-07-27 20:05] VITALS: BP 110/52
[2022-07-27] MEDS: ATORVASTATIN CALCIUM 40 MG TABLET PO SCH (20:14)
[2022-07-27] MEDS: SENNOSIDES 8.6 MG TABLET PO SCH (21:00)
[2022-07-27 22:21] LABS: GLUCOMETER DEV NAME(LOC) 2WR.2B; GLUCOSE,POINT OF CARE 112 MG/DL (70-110)
[2022-07-28] MEDS: HYDROCODONE/ACETAMINOPHEN 5-325 MG TABLET PO PRN ×2 (07:15→20:50)
[2022-07-28] MEDS: ETHYL ALCOHOL 62% ANTISEPTIC NASAL SANITIZER 0.6 ML AMPUL NASAL SCH ×2 (07:36→20:52)
[2022-07-28] MEDS: APIXABAN 5 MG TABLET PO SCH ×2 (07:36→20:50)
[2022-07-28] MEDS: ISOSORBIDE MONONITRATE 30 MG ER TABLET PO SCH (07:36)
[2022-07-28] MEDS: FLUoxetine HCL 10 MG CAPSULE PO SCH (07:36)
[2022-07-28] MEDS: CARVEDILOL 6.25 MG TABLET PO SCH ×2 (07:36→20:50)
[2022-07-28] MEDS: SACUBITRIL/VALSARTAN 24-26 MG TABLET PO SCH ×2 (07:36→20:50)
[2022-07-28] MEDS: MetFORMIN HCL 500 MG TABLET PO SCH ×2 (07:36→16:05)
[2022-07-28] MEDS: GABAPENTIN 300 MG CAPSULE PO SCH ×3 (07:36→20:54)
[2022-07-28] MEDS: CLOBETASOL 0.05% 60 GM OINTMENT TP SCH ×2 (07:37→20:51)
[2022-07-28] MEDS: ALLOPURINOL 100 MG TABLET PO SCH (07:37)
[2022-07-28] MEDS: DOCUSATE SODIUM 250 MG CAPSULE PO SCH ×2 (07:42→20:54)
[2022-07-28] MEDS: BUMETANIDE 1 MG TABLET PO SCH (07:42)
[2022-07-28 08:15] VITALS: BP 122/67
[2022-07-28 11:41] LABS: GLUCOMETER DEV NAME(LOC) 2WR.2B; GLUCOSE,POINT OF CARE 137 MG/DL (70-110)
[2022-07-28 11:46] LABS: GLUCOMETER DEV NAME(LOC) 2WR.1C; GLUCOSE,POINT OF CARE 138 MG/DL (70-110)
[2022-07-28 17:36] LABS: GLUCOMETER DEV NAME(LOC) 2WR.1C; GLUCOSE,POINT OF CARE 105 MG/DL (70-110)
[2022-07-28 20:01] VITALS: BP 119/55
[2022-07-28] MEDS: ATORVASTATIN CALCIUM 40 MG TABLET PO SCH (20:51)
[2022-07-28] MEDS: SENNOSIDES 8.6 MG TABLET PO SCH (20:54)
[2022-07-28] MEDS: MELATONIN 3 MG TABLET PO PRN (20:54)
[2022-07-28 21:15] LABS: GLUCOMETER DEV NAME(LOC) 2WR.2B; GLUCOSE,POINT OF CARE 106 MG/DL (70-110)
[2022-07-29 08:07] VITALS: BP 108/66
[2022-07-29] MEDS: MetFORMIN HCL 500 MG TABLET PO SCH (08:08)
[2022-07-29] MEDS: BUMETANIDE 1 MG TABLET PO SCH (08:09)
[2022-07-29] MEDS: CARVEDILOL 6.25 MG TABLET PO SCH ×2 (08:09→20:49)
[2022-07-29] MEDS: ETHYL ALCOHOL 62% ANTISEPTIC NASAL SANITIZER 0.6 ML AMPUL NASAL SCH ×2 (08:09→20:49)
[2022-07-29] MEDS: DOCUSATE SODIUM 250 MG CAPSULE PO SCH ×2 (08:09→20:50)
[2022-07-29] MEDS: APIXABAN 5 MG TABLET PO SCH ×2 (08:10→20:49)
[2022-07-29] MEDS: FLUoxetine HCL 10 MG CAPSULE PO SCH (08:10)
[2022-07-29] MEDS: GABAPENTIN 300 MG CAPSULE PO SCH ×3 (08:10→20:49)
[2022-07-29] MEDS: ALLOPURINOL 100 MG TABLET PO SCH (08:10)
[2022-07-29] MEDS: CLOBETASOL 0.05% 60 GM OINTMENT TP SCH ×2 (08:10→20:49)
[2022-07-29] MEDS: SACUBITRIL/VALSARTAN 24-26 MG TABLET PO SCH ×2 (08:10→20:49)
[2022-07-29] MEDS: ISOSORBIDE MONONITRATE 30 MG ER TABLET PO SCH (08:10)
[2022-07-29] MEDS: HYDROCODONE/ACETAMINOPHEN 5-325 MG TABLET PO PRN ×2 (08:11→14:50)
[2022-07-29] MEDS: INSULIN LISPRO 100 UNITS/ML SQ PRN ×2 (08:12→20:58)
[2022-07-29 08:36] LABS: GLUCOMETER DEV NAME(LOC) 2WR.1C; GLUCOSE,POINT OF CARE 141 MG/DL (70-110)
[2022-07-29] MEDS: MetFORMIN HCL 850 MG TABLET PO SCH (16:35)
[2022-07-29 17:51] LABS: GLUCOMETER DEV NAME(LOC) 2WR.1C; GLUCOSE,POINT OF CARE 112 MG/DL (70-110)
[2022-07-29 17:51] LABS: GLUCOMETER DEV NAME(LOC) 2WR.1C; GLUCOSE,POINT OF CARE 102 MG/DL (70-110)
[2022-07-29 20:15] VITALS: BP 103/68
[2022-07-29] MEDS: MELATONIN 3 MG TABLET PO PRN (20:49)
[2022-07-29] MEDS: ATORVASTATIN CALCIUM 40 MG TABLET PO SCH (20:49)
[2022-07-29] MEDS: SENNOSIDES 8.6 MG TABLET PO SCH (20:50)
[2022-07-30 05:26] LABS: GLUCOMETER DEV NAME(LOC) 2WR.1C; GLUCOSE,POINT OF CARE 151 MG/DL (70-110)
[2022-07-30 06:51] LABS: GLUCOMETER DEV NAME(LOC) 2WR.2B; GLUCOSE,POINT OF CARE 137 MG/DL (70-110)
[2022-07-30] MEDS: APIXABAN 5 MG TABLET PO SCH ×2 (07:55→21:09)
[2022-07-30] MEDS: DOCUSATE SODIUM 250 MG CAPSULE PO SCH ×2 (07:55→21:00)
[2022-07-30] MEDS: CARVEDILOL 6.25 MG TABLET PO SCH ×2 (07:55→21:09)
[2022-07-30] MEDS: ETHYL ALCOHOL 62% ANTISEPTIC NASAL SANITIZER 0.6 ML AMPUL NASAL SCH ×2 (07:56→21:09)
[2022-07-30] MEDS: BUMETANIDE 1 MG TABLET PO SCH (07:56)
[2022-07-30] MEDS: SACUBITRIL/VALSARTAN 24-26 MG TABLET PO SCH ×2 (07:56→21:09)
[2022-07-30] MEDS: GABAPENTIN 300 MG CAPSULE PO SCH ×3 (07:56→21:10)
[2022-07-30] MEDS: ALLOPURINOL 100 MG TABLET PO SCH (07:56)
[2022-07-30] MEDS: MetFORMIN HCL 850 MG TABLET PO SCH ×2 (07:57→16:34)
[2022-07-30] MEDS: FLUoxetine HCL 10 MG CAPSULE PO SCH (07:57)
[2022-07-30] MEDS: CLOBETASOL 0.05% 60 GM OINTMENT TP SCH ×2 (07:57→21:08)
[2022-07-30] MEDS: ISOSORBIDE MONONITRATE 30 MG ER TABLET PO SCH (07:57)
[2022-07-30 08:03] VITALS: BP 103/64
[2022-07-30] MEDS: HYDROCODONE/ACETAMINOPHEN 5-325 MG TABLET PO PRN (08:03)
[2022-07-30] MEDS: COLCHICINE 0.6 MG TABLET PO PRN ×3 (10:13→21:10)
[2022-07-30 13:16] LABS: GLUCOMETER DEV NAME(LOC) 2WR.2B; GLUCOSE,POINT OF CARE 104 MG/DL (70-110)
[2022-07-30 17:11] LABS: GLUCOMETER DEV NAME(LOC) 2WR.1C; GLUCOSE,POINT OF CARE 129 MG/DL (70-110)
[2022-07-30 20:07] VITALS: BP 103/60
[2022-07-30] MEDS: SENNOSIDES 8.6 MG TABLET PO SCH (21:00)
[2022-07-30] MEDS: ATORVASTATIN CALCIUM 40 MG TABLET PO SCH (21:09)
[2022-07-30] MEDS: MELATONIN 3 MG TABLET PO PRN (21:15)
[2022-07-30 23:46] LABS: GLUCOMETER DEV NAME(LOC) 2WR.2B; GLUCOSE,POINT OF CARE 102 MG/DL (70-110)
[2022-07-31] MEDS ORDERED: METF-1185 PO (03:54)
[2022-07-31] MEDS ORDERED: DOCU-350 PO (03:54)
[2022-07-31] MEDS ORDERED: APIX5TAB PO (03:57)
[2022-07-31] MEDS ORDERED: GABA-1181 PO (03:57)
[2022-07-31] MEDS ORDERED: FLUO10CA24 PO (04:00)
[2022-07-31] MEDS ORDERED: ALLO-97 PO (04:01)
[2022-07-31] MEDS ORDERED: CLOB15CR10 TP (04:06)
[2022-07-31] MEDS ORDERED: ATOR40TA28 PO (04:06)
[2022-07-31] MEDS ORDERED: CLOB15OI17 TP (04:06)
[2022-07-31 07:30] VITALS: BP 109/53
[2022-07-31 08:11] LABS: GLUCOMETER DEV NAME(LOC) 2WR.2B; GLUCOSE,POINT OF CARE 136 MG/DL (70-110)
[2022-07-31] MEDS: BUMETANIDE 1 MG TABLET PO SCH (08:16)
[2022-07-31] MEDS: ALLOPURINOL 100 MG TABLET PO SCH (08:17)
[2022-07-31] MEDS: FLUoxetine HCL 10 MG CAPSULE PO SCH (08:17)
[2022-07-31] MEDS: CARVEDILOL 6.25 MG TABLET PO SCH ×2 (08:17→21:00)
[2022-07-31] MEDS: ETHYL ALCOHOL 62% ANTISEPTIC NASAL SANITIZER 0.6 ML AMPUL NASAL SCH ×2 (08:17→20:42)
[2022-07-31] MEDS: GABAPENTIN 300 MG CAPSULE PO SCH ×3 (08:17→20:43)
[2022-07-31] MEDS: MetFORMIN HCL 850 MG TABLET PO SCH ×2 (08:17→16:23)
[2022-07-31] MEDS: APIXABAN 5 MG TABLET PO SCH ×2 (08:17→20:43)
[2022-07-31] MEDS: CLOBETASOL 0.05% 60 GM OINTMENT TP SCH ×2 (08:17→23:12)
[2022-07-31] MEDS: SACUBITRIL/VALSARTAN 24-26 MG TABLET PO SCH ×2 (08:18→20:43)
[2022-07-31] MEDS: DOCUSATE SODIUM 250 MG CAPSULE PO SCH ×2 (08:18→21:00)
[2022-07-31] MEDS: COLCHICINE 0.6 MG TABLET PO PRN ×3 (08:19→20:44)
[2022-07-31] MEDS: ISOSORBIDE MONONITRATE 30 MG ER TABLET PO SCH (08:19)
[2022-07-31 10:12] LABS: EOSINOPHILS % (AUTO) 0.5 % (1.0-6.0); HEMATOCRIT 44.7 % (41-53); HEMOGLOBIN 15.1 g/dL (13.5-17.5); LYMPHOCYTES # (AUTO) 1.1 K/uL (1.0-4.8); MEAN CORPUSCULAR HEMOGLOBIN 30.3 pg (26.0-34.0); MEAN CORPUSCULAR HGB CONC 33.9 G/dL (31.0-37.0); MEAN CORPUSCULAR VOLUME 90 fL (80-100); MONOCYTES # (AUTO) 1.2 K/uL (0.1-1.0); MONOCYTES % (AUTO) 15.1 % (2.0-9.0); NEUTROPHILS # (AUTO) 5.3 K/uL (1.8-7.7); NEUTROPHILS % (AUTO) 69.4 % (40.0-70.0); PLATELET COUNT (AUTO) 468 K/uL (150-450); RED CELL DISTRIBUTION WIDTH 14.9 % (11.5-14.5)
[2022-07-31 10:23] LABS: ALANINE AMINOTRANSFERASE 48 U/L (12-78); ALBUMIN 4.1 g/dL (3.4-5.0); ALKALINE PHOSPHATASE 193 U/L (46-116); ANION GAP 6 mmol/L (8-16); ASPARTATE AMINOTRANSFERASE 33 U/L (15-37); CALCIUM, TOTAL 9.8 mg/dL (8.8-10.5); CARBON DIOXIDE 31 mmol/L (22-29); CHLORIDE 96 mmol/L (98-107); CREATININE 1.21 mg/dL (0.60-1.30); GLOMERULAR FILTR. RATE CALC > 60 mL/min (>60); GLUCOSE,RANDOM 105 mg/dL (70-110); POTASSIUM 4.7 mmol/L (3.5-5.1); SODIUM SERUM 133 mmol/L (136-145); TOTAL PROTEIN, SERUM 8.6 g/dL (6.4-8.2); UREA NITROGEN, BLOOD 29 mg/dL (7-18)
[2022-07-31 13:26] LABS: GLUCOMETER DEV NAME(LOC) 2WR.2B; GLUCOSE,POINT OF CARE 117 MG/DL (70-110)
[2022-07-31 17:21] LABS: GLUCOMETER DEV NAME(LOC) 2WR.2B; GLUCOSE,POINT OF CARE 128 MG/DL (70-110)
[2022-07-31] MEDS: ATORVASTATIN CALCIUM 40 MG TABLET PO SCH (20:43)
[2022-07-31 20:51] LABS: GLUCOMETER DEV NAME(LOC) 2WR.1C; GLUCOSE,POINT OF CARE 152 MG/DL (70-110)
[2022-07-31 21:00] VITALS: BP 97/72
[2022-07-31] MEDS: SENNOSIDES 8.6 MG TABLET PO SCH (21:00)
[2022-07-31 22:11] LABS: GLUCOMETER DEV NAME(LOC) 2WR.1C; GLUCOSE,POINT OF CARE 132 MG/DL (70-110)
[2022-08-01] MEDS: COLCHICINE 0.6 MG TABLET PO PRN ×2 (03:21→07:41)
[2022-08-01 06:41] LABS: GLUCOMETER DEV NAME(LOC) 2WR.1C; GLUCOSE,POINT OF CARE 142 MG/DL (70-110)
[2022-08-01] MEDS: CLOBETASOL 0.05% 60 GM OINTMENT TP SCH ×2 (07:36→20:55)
[2022-08-01] MEDS: FLUoxetine HCL 10 MG CAPSULE PO SCH (07:36)
[2022-08-01] MEDS: ISOSORBIDE MONONITRATE 30 MG ER TABLET PO SCH (07:37)
[2022-08-01] MEDS: SACUBITRIL/VALSARTAN 24-26 MG TABLET PO SCH ×2 (07:37→20:55)
[2022-08-01] MEDS: APIXABAN 5 MG TABLET PO SCH ×2 (07:37→20:55)
[2022-08-01] MEDS: ALLOPURINOL 100 MG TABLET PO SCH (07:37)
[2022-08-01] MEDS: CARVEDILOL 6.25 MG TABLET PO SCH ×2 (07:37→20:56)
[2022-08-01] MEDS: GABAPENTIN 300 MG CAPSULE PO SCH ×3 (07:37→20:55)
[2022-08-01] MEDS: MetFORMIN HCL 850 MG TABLET PO SCH ×2 (07:37→15:50)
[2022-08-01] MEDS: ETHYL ALCOHOL 62% ANTISEPTIC NASAL SANITIZER 0.6 ML AMPUL NASAL SCH ×2 (07:38→20:57)
[2022-08-01] MEDS: DOCUSATE SODIUM 250 MG CAPSULE PO SCH ×3 (07:39→20:56)
[2022-08-01] MEDS: BUMETANIDE 1 MG TABLET PO SCH (07:46)
[2022-08-01 08:05] VITALS: BP 127/73
[2022-08-01] MEDS: INSULIN LISPRO 100 UNITS/ML SQ PRN (08:47)
[2022-08-01 12:16] LABS: GLUCOMETER DEV NAME(LOC) 2WR.2B; GLUCOSE,POINT OF CARE 118 MG/DL (70-110)
[2022-08-01 17:57] LABS: GLUCOMETER DEV NAME(LOC) 2WR.2B; GLUCOSE,POINT OF CARE 92 MG/DL (70-110)
[2022-08-01 20:54] VITALS: BP 95/58
[2022-08-01] MEDS: ATORVASTATIN CALCIUM 40 MG TABLET PO SCH (20:55)
[2022-08-01] MEDS: MELATONIN 3 MG TABLET PO PRN (20:55)
[2022-08-01] MEDS: SENNOSIDES 8.6 MG TABLET PO SCH (20:56)
[2022-08-01] MEDS: HYDROCODONE/ACETAMINOPHEN 5-325 MG TABLET PO PRN (21:14)
[2022-08-01 23:06] LABS: GLUCOMETER DEV NAME(LOC) 2WR.2B; GLUCOSE,POINT OF CARE 121 MG/DL (70-110)
[2022-08-02 08:00] VITALS: BP 116/77
[2022-08-02 08:06] LABS: GLUCOMETER DEV NAME(LOC) 2WR.1C; GLUCOSE,POINT OF CARE 128 MG/DL (70-110)
[2022-08-02] MEDS: ETHYL ALCOHOL 62% ANTISEPTIC NASAL SANITIZER 0.6 ML AMPUL NASAL SCH ×2 (08:08→20:44)
[2022-08-02] MEDS: MetFORMIN HCL 850 MG TABLET PO SCH ×2 (08:08→16:33)
[2022-08-02] MEDS: DOCUSATE SODIUM 250 MG CAPSULE PO SCH ×2 (08:09→20:45)
[2022-08-02] MEDS: FLUoxetine HCL 10 MG CAPSULE PO SCH (08:09)
[2022-08-02] MEDS: CLOBETASOL 0.05% 60 GM OINTMENT TP SCH ×2 (08:09→20:44)
[2022-08-02] MEDS: ISOSORBIDE MONONITRATE 30 MG ER TABLET PO SCH (08:09)
[2022-08-02] MEDS: BUMETANIDE 1 MG TABLET PO SCH (08:09)
[2022-08-02] MEDS: SACUBITRIL/VALSARTAN 24-26 MG TABLET PO SCH ×2 (08:09→20:44)
[2022-08-02] MEDS: CARVEDILOL 6.25 MG TABLET PO SCH ×2 (08:09→20:45)
[2022-08-02] MEDS: APIXABAN 5 MG TABLET PO SCH ×2 (08:09→20:45)
[2022-08-02] MEDS: ALLOPURINOL 100 MG TABLET PO SCH (08:09)
[2022-08-02] MEDS: GABAPENTIN 300 MG CAPSULE PO SCH ×3 (08:09→20:45)
[2022-08-02 13:42] LABS: GLUCOMETER DEV NAME(LOC) 2WR.2B; GLUCOSE,POINT OF CARE 118 MG/DL (70-110)
[2022-08-02 17:41] LABS: GLUCOMETER DEV NAME(LOC) 2WR.2B; GLUCOSE,POINT OF CARE 121 MG/DL (70-110)
[2022-08-02 20:00] VITALS: BP 108/56
[2022-08-02] MEDS: ATORVASTATIN CALCIUM 40 MG TABLET PO SCH (20:44)
[2022-08-02 20:45] VITALS: BP 121/58
[2022-08-02] MEDS: SENNOSIDES 8.6 MG TABLET PO SCH (20:45)
[2022-08-02] MEDS: MELATONIN 3 MG TABLET PO PRN (20:45)
[2022-08-02 22:21] LABS: GLUCOMETER DEV NAME(LOC) 2WR.2B; GLUCOSE,POINT OF CARE 97 MG/DL (70-110)
[2022-08-03 07:51] LABS: GLUCOMETER DEV NAME(LOC) 2WR.2B; GLUCOSE,POINT OF CARE 135 MG/DL (70-110)
[2022-08-03 08:05] VITALS: BP 124/69
[2022-08-03] MEDS: MetFORMIN HCL 850 MG TABLET PO SCH ×2 (08:08→17:57)
[2022-08-03] MEDS: BUMETANIDE 1 MG TABLET PO SCH (08:08)
[2022-08-03] MEDS: CARVEDILOL 6.25 MG TABLET PO SCH ×2 (08:10→20:42)
[2022-08-03] MEDS: APIXABAN 5 MG TABLET PO SCH ×2 (08:10→20:42)
[2022-08-03] MEDS: ISOSORBIDE MONONITRATE 30 MG ER TABLET PO SCH (08:11)
[2022-08-03] MEDS: GABAPENTIN 300 MG CAPSULE PO SCH ×3 (08:11→20:43)
[2022-08-03] MEDS: SACUBITRIL/VALSARTAN 24-26 MG TABLET PO SCH ×2 (08:11→20:42)
[2022-08-03] MEDS: FLUoxetine HCL 10 MG CAPSULE PO SCH (08:12)
[2022-08-03] MEDS: ALLOPURINOL 100 MG TABLET PO SCH (08:12)
[2022-08-03] MEDS: DOCUSATE SODIUM 250 MG CAPSULE PO SCH ×2 (08:12→20:42)
[2022-08-03] MEDS: CLOBETASOL 0.05% 60 GM OINTMENT TP SCH ×2 (08:12→20:42)
[2022-08-03] MEDS: ETHYL ALCOHOL 62% ANTISEPTIC NASAL SANITIZER 0.6 ML AMPUL NASAL SCH ×2 (08:13→20:42)
[2022-08-03 11:56] LABS: GLUCOMETER DEV NAME(LOC) 2WR.1C; GLUCOSE,POINT OF CARE 116 MG/DL (70-110)
[2022-08-03] MEDS: COLCHICINE 0.6 MG TABLET PO PRN (13:57)
[2022-08-03 17:46] LABS: GLUCOMETER DEV NAME(LOC) 2WR.1C; GLUCOSE,POINT OF CARE 114 MG/DL (70-110)
[2022-08-03] MEDS: HYDROCODONE/ACETAMINOPHEN 5-325 MG TABLET PO PRN (18:04)
[2022-08-03 20:30] VITALS: BP 100/58
[2022-08-03] MEDS: ATORVASTATIN CALCIUM 40 MG TABLET PO SCH (20:42)
[2022-08-03] MEDS: MELATONIN 3 MG TABLET PO PRN (20:42)
[2022-08-03] MEDS: SENNOSIDES 8.6 MG TABLET PO SCH (20:43)
[2022-08-03 21:16] LABS: GLUCOMETER DEV NAME(LOC) 2WR.2B; GLUCOSE,POINT OF CARE 102 MG/DL (70-110)
[2022-08-04 06:56] LABS: GLUCOMETER DEV NAME(LOC) 2WR.1C; GLUCOSE,POINT OF CARE 99 MG/DL (70-110)
[2022-08-04] MEDS: APIXABAN 5 MG TABLET PO SCH ×2 (08:09→20:19)
[2022-08-04] MEDS: MetFORMIN HCL 850 MG TABLET PO SCH ×2 (08:09→17:17)
[2022-08-04] MEDS: GABAPENTIN 300 MG CAPSULE PO SCH ×3 (08:09→20:19)
[2022-08-04] MEDS: FLUoxetine HCL 10 MG CAPSULE PO SCH (08:09)
[2022-08-04] MEDS: ETHYL ALCOHOL 62% ANTISEPTIC NASAL SANITIZER 0.6 ML AMPUL NASAL SCH ×2 (08:10→20:18)
[2022-08-04] MEDS: CARVEDILOL 6.25 MG TABLET PO SCH ×2 (08:10→20:20)
[2022-08-04] MEDS: BUMETANIDE 1 MG TABLET PO SCH (08:10)
[2022-08-04] MEDS: SACUBITRIL/VALSARTAN 24-26 MG TABLET PO SCH ×2 (08:10→20:19)
[2022-08-04] MEDS: ALLOPURINOL 100 MG TABLET PO SCH (08:11)
[2022-08-04] MEDS: CLOBETASOL 0.05% 60 GM OINTMENT TP SCH ×2 (08:11→20:24)
[2022-08-04] MEDS: ISOSORBIDE MONONITRATE 30 MG ER TABLET PO SCH (08:11)
[2022-08-04] MEDS: DOCUSATE SODIUM 250 MG CAPSULE PO SCH ×2 (08:22→20:19)
[2022-08-04 09:18] VITALS: BP 128/64
[2022-08-04 12:26] LABS: GLUCOMETER DEV NAME(LOC) 2WR.1C; GLUCOSE,POINT OF CARE 109 MG/DL (70-110)
[2022-08-04 16:47] LABS: GLUCOMETER DEV NAME(LOC) 2WR.1C; GLUCOSE,POINT OF CARE 116 MG/DL (70-110)
[2022-08-04 19:47] VITALS: BP 96/49
[2022-08-04] MEDS: ACETAMINOPHEN 325 MG TABLET PO PRN (19:47)
[2022-08-04] MEDS: MELATONIN 3 MG TABLET PO PRN (20:18)
[2022-08-04] MEDS: SENNOSIDES 8.6 MG TABLET PO SCH (20:18)
[2022-08-04] MEDS: ATORVASTATIN CALCIUM 40 MG TABLET PO SCH (20:19)
[2022-08-04 20:47] VITALS: BP 98/55
[2022-08-05 00:20] LABS: GLUCOMETER DEV NAME(LOC) 2WR.1C; GLUCOSE,POINT OF CARE 115 MG/DL (70-110)
[2022-08-05 06:36] LABS: GLUCOMETER DEV NAME(LOC) 2WR.1C; GLUCOSE,POINT OF CARE 139 MG/DL (70-110)
[2022-08-05 08:00] VITALS: BP 99/53
[2022-08-05] MEDS: APIXABAN 5 MG TABLET PO SCH ×2 (08:14→21:14)
[2022-08-05] MEDS: ALLOPURINOL 100 MG TABLET PO SCH (08:14)
[2022-08-05] MEDS: GABAPENTIN 300 MG CAPSULE PO SCH ×3 (08:14→21:13)
[2022-08-05] MEDS: MetFORMIN HCL 850 MG TABLET PO SCH ×2 (08:15→16:09)
[2022-08-05] MEDS: ETHYL ALCOHOL 62% ANTISEPTIC NASAL SANITIZER 0.6 ML AMPUL NASAL SCH ×2 (08:15→21:15)
[2022-08-05] MEDS: CARVEDILOL 6.25 MG TABLET PO SCH ×2 (08:16→21:14)
[2022-08-05] MEDS: BUMETANIDE 1 MG TABLET PO SCH (08:16)
[2022-08-05] MEDS: SACUBITRIL/VALSARTAN 24-26 MG TABLET PO SCH ×2 (08:16→21:14)
[2022-08-05] MEDS: DOCUSATE SODIUM 250 MG CAPSULE PO SCH ×2 (08:16→21:00)
[2022-08-05] MEDS: CLOBETASOL 0.05% 60 GM OINTMENT TP SCH ×2 (08:17→21:15)
[2022-08-05] MEDS: FLUoxetine HCL 10 MG CAPSULE PO SCH (08:17)
[2022-08-05] MEDS: ISOSORBIDE MONONITRATE 30 MG ER TABLET PO SCH (08:17)
[2022-08-05] MEDS: COLCHICINE 0.6 MG TABLET PO PRN (10:00)
[2022-08-05] MEDS ORDERED: SACU1TAB PO (10:19)
[2022-08-05] MEDS ORDERED: DOCU-350 PO (10:19)
[2022-08-05] MEDS ORDERED: ALLO-97 PO (10:19)
[2022-08-05] MEDS ORDERED: APIX5TAB PO (10:19)
[2022-08-05] MEDS ORDERED: ATOR40TA71 PO (10:19)
[2022-08-05] MEDS ORDERED: METF-1185 PO (10:19)
[2022-08-05] MEDS ORDERED: SENN-187 PO (10:19)
[2022-08-05] MEDS ORDERED: BUME1TAB6 PO (10:19)
[2022-08-05] MEDS ORDERED: CARV6 PO (10:19)
[2022-08-05] MEDS ORDERED: GABA-1181 PO (10:19)
[2022-08-05] MEDS ORDERED: PROZ10 PO (10:19)
[2022-08-05] MEDS ORDERED: ISOS30TA92 PO (10:19)
[2022-08-05 11:46] LABS: GLUCOMETER DEV NAME(LOC) 2WR.1C; GLUCOSE,POINT OF CARE 89 MG/DL (70-110)
[2022-08-05 17:52] LABS: GLUCOMETER DEV NAME(LOC) 2WR.1C; GLUCOSE,POINT OF CARE 126 MG/DL (70-110)
[2022-08-05 20:56] LABS: GLUCOMETER DEV NAME(LOC) 2WR.1C; GLUCOSE,POINT OF CARE 113 MG/DL (70-110)
[2022-08-05] MEDS: SENNOSIDES 8.6 MG TABLET PO SCH (21:00)
[2022-08-05 21:10] VITALS: BP 101/71
[2022-08-05] MEDS: ATORVASTATIN CALCIUM 40 MG TABLET PO SCH (21:13)
[2022-08-06 07:11] LABS: GLUCOMETER DEV NAME(LOC) 2WR.2B; GLUCOSE,POINT OF CARE 111 MG/DL (70-110)
[2022-08-06 08:01] VITALS: BP 127/64
[2022-08-06] MEDS: SACUBITRIL/VALSARTAN 24-26 MG TABLET PO SCH (08:09)
[2022-08-06] MEDS: ISOSORBIDE MONONITRATE 30 MG ER TABLET PO SCH (08:09)
[2022-08-06] MEDS: APIXABAN 5 MG TABLET PO SCH (08:10)
[2022-08-06] MEDS: FLUoxetine HCL 10 MG CAPSULE PO SCH (08:10)
[2022-08-06] MEDS: ALLOPURINOL 100 MG TABLET PO SCH (08:10)
[2022-08-06] MEDS: MetFORMIN HCL 850 MG TABLET PO SCH (08:10)
[2022-08-06] MEDS: GABAPENTIN 300 MG CAPSULE PO SCH (08:10)
[2022-08-06] MEDS: ETHYL ALCOHOL 62% ANTISEPTIC NASAL SANITIZER 0.6 ML AMPUL NASAL SCH (08:18)
[2022-08-06] MEDS: BUMETANIDE 1 MG TABLET PO SCH (10:52)
[2022-08-06] MEDS: DOCUSATE SODIUM 250 MG CAPSULE PO SCH (10:52)
[2022-08-06] MEDS: CARVEDILOL 6.25 MG TABLET PO SCH (10:53)
[2022-08-06] MEDS: CLOBETASOL 0.05% 60 GM OINTMENT TP SCH (10:53)
== END 2022-08-06 10:45 | disposition home health service (06) | DRG 44 ==
LOC: 2WR 17:00
PROVIDERS: ADMIT Physical Medicine & Rehabilitation; ATTEND Physical Medicine & Rehabilitation
PROC: 3E0234Z Introduction of Serum, Toxoid and Vaccine into Muscle, Percutaneous Approach (ICD-10-PCS; principal; 2022-07-16)
PROC: 3E02340 Introduction of Influenza Vaccine into Muscle, Percutaneous Approach (ICD-10-PCS; 2022-07-16)
DX: I62.9 Nontraumatic intracranial hemorrhage, unspecified (principal); E46 Unspecified protein-calorie malnutrition; I42.8 Other cardiomyopathies; E87.1 Hypo-osmolality and hyponatremia; I48.19 Other persistent atrial fibrillation; I69.351 Hemiplegia and hemiparesis following cerebral infarction affecting right dominant side; I50.9 Heart failure, unspecified; E11.9 Type 2 diabetes mellitus without complications; L03.113 Cellulitis of right upper limb; I11.0 Hypertensive heart disease with heart failure; F41.9 Anxiety disorder, unspecified; R13.10 Dysphagia, unspecified; R41.89 Other symptoms and signs involving cognitive functions and awareness; M79.672 Pain in left foot; R19.7 Diarrhea, unspecified; R47.1 Dysarthria and anarthria; M79.639 Pain in unspecified forearm; F32.A Depression, unspecified; M79.671 Pain in right foot; M10.9 Gout, unspecified; M25.571 Pain in right ankle and joints of right foot; I69.320 Aphasia following cerebral infarction; Z95.810 Presence of automatic (implantable) cardiac defibrillator; Z68.25 Body mass index [BMI] 25.0-25.9, adult; Z79.899 Other long term (current) drug therapy; Z79.01 Long term (current) use of anticoagulants; Z23 Encounter for immunization
CPT/HCPCS: 80048; 80053; 82962; 84550; 85025; 86140; 87081; 90686; 90732; 92507; 92523; 92610; 93970; 97110; 97112; 97116; 97150; 97162; 97167; 97530; 97535; 99366; J1644; Q9967